=== PATIENT | male | born 1995 | race Two or more races ===

== ENCOUNTER 2020-01-13 12:26 | Day surgery (SDC) | payer OTHER ==
[2020-01-08 14:26] LABS: Basophils # (auto) 0.1 10 ^3/uL (0-0.2); Basophils % (auto) 0.6 % (0.0-2.0); Eosinophils # (auto) 0.1 10 ^3/uL (0-0.8); Hematocrit 45.7 % (41.0-53.0); Hemoglobin 15.4 g/dL (13.5-17.5); Lymphocytes # (auto) 3.4 10 ^3/uL (0.4-5.4); Lymphocytes % (auto) 31.7 % (10.0-50.0); Mean Corpuscular Hemoglobin 29.3 pg (28.0-32.0); Mean Corpuscular Hgb Conc. 33.6 g/dL (32.0-36.0); Mean Corpuscular Volume 87.3 fL (80.0-100.0); Monocytes # (auto) 0.9 10 ^3/uL (0-1.3); Monocytes % (auto) 8.1 % (0.0-12.0); Neutrophils # (auto) 6.2 10 ^3/uL (1.6-8.6); Neutrophils % (auto) 58.6 % (37.0-80.0); Nucleated Red Blood Cells % 0.2 %; Platelet Count (auto) 272 10^3/uL (140-450); Red Blood Cells 5.24 10^6/uL (4.5-5.90); Red Cell Distribution Width 13.7 % (11.8-14.3); White Blood Cell 10.6 10^3/uL (4.4-10.8)
[2020-01-08 14:37] LABS: Urine Bacteria NONE SEEN /hpf (None Seen); Urine Blood Negative /uL (Negative); Urine Mucus FEW (None Seen); Urine Specific Gravity 1.024 (1.001-1.035); Urine WBC <1 /hpf (0 - 3)
[2020-01-08 14:44] LABS: INR 1.01 (0.9-1.15); Partial Thromboplastin Time 27.1 sec (23.0-31.2)
[2020-01-08 14:45] LABS: Albumin 4.1 g/dL (3.4-5.0); Calcium 9.3 mg/dL (8.5-10.1); Potassium 3.5 mmol/L (3.5-5.1)
[2020-01-08 14:47] LABS: BUN/Creatinine Ratio 13.8
[2020-01-08 14:50] LABS: Bilirubin, Total 0.6 mg/dL (0.2-1.0); Total Protein 8.7 g/dL (6.4-8.2)
[~2020-01-13] VITALS: Ht 172.7 cm; Wt 99.8 kg
[~2020-01-13 12:26] MED LIST: ESOM40CA39 PO
[2020-01-13] MEDS ORDERED: SODIUM CHLORIDE LOCK 10 ML ONE (14:27)
[2020-01-13] MEDS ORDERED: LIDOCAINE VISCOUS 2% 15ML UD ONE (14:27)
[2020-01-13] MEDS: diphenhdrAMINE HCL 50 MG/1 ML VL ONE ×2 (14:59→15:00)
[2020-01-13] MEDS: fentaNYL CITRATE 100 MCG/2 ML VL ONE ×2 (14:59→15:00)
[2020-01-13] MEDS: MIDAZOLAM HCL 5 MG/ML-1ML VIAL ONE ×3 (14:59→15:03)
[2020-01-13 15:24] VITALS: BP 133/71
== END 2020-01-13 15:39 | disposition home or self-care (01) ==
LOC: GI 12:26
PROVIDERS: ATTEND Internal Medicine Gastroenterology
DX: K21.9 Gastro-esophageal reflux disease without esophagitis (principal); K44.9 Diaphragmatic hernia without obstruction or gangrene; K29.70 Gastritis, unspecified, without bleeding; K31.9 Disease of stomach and duodenum, unspecified; Z20.828 Contact with and (suspected) exposure to other viral communicable diseases; Z79.899 Other long term (current) drug therapy; Z98.890 Other specified postprocedural states
CPT/HCPCS: 36415; 43239; 80053; 81001; 85025; 85610; 85730; 88305; 88342; J1200; J2250; J3010; J7030; U0003